=== PATIENT | male | born 1990 | race African-American/Black ===

== ENCOUNTER 2018-08-17 08:53 | Emergency (ER) | payer MEDICAID ==
[~2018-08-17] VITALS: Ht 180.3 cm; Wt 5.0 kg
[2018-08-17 09:02] VITALS: BP 130/76
== END 2018-08-17 10:50 | disposition home or self-care (01) ==
LOC: ER 08:53
DX: N48.1 Balanitis (principal); J06.9 Acute upper respiratory infection, unspecified; F12.10 Cannabis abuse, uncomplicated
CPT/HCPCS: 99283

== ENCOUNTER 2018-10-19 05:30 | Emergency (ER) | payer MEDICAID ==
[~2018-10-19] VITALS: Ht 180.3 cm; Wt 84.0 kg
[2018-10-19 05:46] VITALS: BP 125/63
[2018-10-19] MEDS ORDERED: CEFTRIAXONE SODIUM 250 MG/VIAL IM ONE (06:15)
[2018-10-19] MEDS ORDERED: AZITHROMYCIN 500 MG TABLET PO ONE (06:15)
[2018-10-19] MEDS ORDERED: IBUPROFEN 800MG TABLET PO ONE (07:00)
[2018-10-19 08:28] LABS: *AMPHETAMINES SCREEN URINE NEGATIVE (NEGATIVE); *BARBITURATES SCREEN URINE NEGATIVE (NEGATIVE)
[2018-10-19 08:29] LABS: *BENZODIAZEPINES SCREEN URINE NEGATIVE (NEGATIVE); *COCAINE SCREEN URINE PRESUMTIVE POSITIVE (NEGATIVE); CANNABINOID URINE SCREEN PRESUMTIVE POSITIVE (NEGATIVE); METHADONE URINE SCREEN NEGATIVE (NEGATIVE); OPIATES URINE SCREEN NEGATIVE (NEGATIVE); PHENCYCLIDINE URINE SCREEN NEGATIVE (NEGATIVE)
== END 2018-10-19 08:27 | disposition home or self-care (01) ==
LOC: ER 05:30
DX: M54.12 Radiculopathy, cervical region (principal); A64 Unspecified sexually transmitted disease; N34.2 Other urethritis; F17.210 Nicotine dependence, cigarettes, uncomplicated; F12.10 Cannabis abuse, uncomplicated
CPT/HCPCS: 72125; 80305; 96372; 99284; 99406; J0696

== ENCOUNTER 2021-04-14 11:52 | Emergency (ER) | payer MEDICAID ==
[~2021-04-14] VITALS: Ht 180.3 cm; Wt 76.7 kg
[2021-04-14] MEDS ORDERED: KETOROLAC 60MG/2ML VIAL IM ONE (12:30)
[2021-04-14] MEDS ORDERED: CYCLOBENZAPRINE 10MG TABLET PO ONE (12:30)
[2021-04-14] MEDS ORDERED: IBUP-2030 MT (13:34)
[2021-04-14] MEDS ORDERED: CYCL10TA7 MT (13:34)
[2021-04-14 13:40] VITALS: BP 118/70
== END 2021-04-14 13:50 | disposition home or self-care (01) ==
LOC: ER 11:52
DX: S16.1XXA Strain of muscle, fascia and tendon at neck level, initial encounter (principal); X58.XXXA Exposure to other specified factors, initial encounter; Y93.89 Activity, other specified; Y92.89 Other specified places as the place of occurrence of the external cause; Y99.8 Other external cause status; F12.10 Cannabis abuse, uncomplicated
CPT/HCPCS: 96372; 99283; J1885

== ENCOUNTER 2021-09-24 11:27 | Emergency (ER) | payer MEDICAID ==
[~2021-09-24] VITALS: Ht 172.7 cm; Wt 70.0 kg
[~2021-09-24 11:27] MED LIST: CYCL10TA21 MT; IBUP-2030 MT
[2021-09-24] MEDS ORDERED: ACETAMINOPHEN 325MG TABLET PO ONE (11:45)
[2021-09-24] MEDS ORDERED: SODIUM CHLORIDE 0.9% 1,000 ML IV ONE (11:45)
[2021-09-24 12:16] LABS: BASOPHILS % 0.5 % (0.0-2.0); EOSINOPHILS % 0.1 % (0.0-5.0); HEMATOCRIT. 41.1 % (42.0-52.0); HEMOGLOBIN. 14.3 g/dL (14.0-18.0); LYMPHOCYTES % 14.6 % (20.0-50.0); MEAN CORPUSCULAR HEMOGLOBIN 30.8 pg (28.0-32.0); MEAN CORPUSCULAR VOLUME 88.5 fL (80.0-94.0); MEAN PLATELET VOLUME 9.3 fl (7.4-10.4); MONOCYTES % 7.3 % (2.0-8.0); NEUTROPHILS % 77.5 % (40.0-76.0); PLATELET 96 x1000/uL (130-400); RED BLOOD CELL COUNT 4.64 mill/uL (4.7-6.1); RED CELL DISTRIBUTION WIDTH 12.9 % (11.6-14.6)
[2021-09-24 12:27] LABS: CHLORIDE 97 mEq/L (98-107)
[2021-09-24 14:54] VITALS: BP 126/86
[2021-09-24] MEDS ORDERED: ONDA4TAB5 MT (15:15)
[2021-09-24] MEDS ORDERED: IBUP-2028 MT (15:15)
== END 2021-09-24 15:53 | disposition home or self-care (01) ==
LOC: ER 11:27
DX: B34.9 Viral infection, unspecified (principal); F12.10 Cannabis abuse, uncomplicated; Z20.822 Contact with and (suspected) exposure to COVID-19
CPT/HCPCS: 36415; 71045; 80053; 83605; 83690; 85025; 87426; 87804; 99284; C9803; J7030

== ENCOUNTER 2024-06-03 06:19 | Emergency (ER) | payer MEDICAID ==
[~2024-06-03] VITALS: Ht 182.9 cm; Wt 73.0 kg
[~2024-06-03 06:19] MED LIST changes: +IBUP-2028 MT; +ONDA4TAB5 MT
[2024-06-03 06:22] VITALS: BP 158/83; PULSE 90; RESP 16; TEMP 36.7; O2SAT 99
[2024-06-03] MEDS ORDERED: KETOROLAC 30MG/ML VIAL IM STA (09:17)
[2024-06-03] MEDS ORDERED: CEFTRIAXONE SODIUM 500MG VIAL IM ONE (09:30)
[2024-06-03] MEDS ORDERED: AZITHROMYCIN 500 MG TABLET PO ONE (09:30)
[2024-06-03 10:08] LABS: BASOPHILS % 0.2 % (0.0-2.0); EOSINOPHILS % 0.6 % (0.0-5.0); HEMATOCRIT. 39.9 % (42.0-52.0); HEMOGLOBIN. 13.4 g/dL (14.0-18.0); LYMPHOCYTES % 9.3 % (20.0-50.0); MEAN CORPUSCULAR HEMOGLOBIN 30.3 pg (28.0-32.0); MEAN CORPUSCULAR HGB CONC 33.6 g/dL (31.0-37.0); MEAN CORPUSCULAR VOLUME 90.3 fL (80.0-94.0); MEAN PLATELET VOLUME 9.5 fl (7.4-10.4); MONOCYTES % 10.7 % (2.0-8.0); NEUTROPHILS % 79.2 % (40.0-76.0); PLATELET 132 x1000/uL (130-400); RED BLOOD CELL COUNT 4.43 mill/uL (4.7-6.1); RED CELL DISTRIBUTION WIDTH 13.7 % (11.6-14.6); WHITE BLOOD COUNT 6.3 x1000/uL (4.5-11.0)
[2024-06-03 10:13] LABS: CHLORIDE 99 mEq/L (98-107); POTASSIUM 3.6 mEq/L (3.5-5.1); SODIUM 132 mEq/L (136-145)
[2024-06-03 10:17] LABS: CALCIUM 9.2 mg/dL (8.7-10.4); CARBON DIOXIDE 29 mEq/L (21-32)
[2024-06-03 10:22] LABS: CREATININE 0.9 mg/dL (0.6-1.3); GLUCOSE 83 mg/dL (70-105)
[2024-06-03 10:23] LABS: ALANINE AMINOTRANSFERASE 13 IU/L (10-49); ASPARTATE AMINOTRANSFERASE 18 IU/L (<34); UREA NITROGEN BLOOD 14 mg/dL (9-23)
[2024-06-03 10:24] LABS: ALBUMIN 3.9 g/dL (3.2-4.8)
[2024-06-03 10:25] LABS: BILIRUBIN DIRECT 0.1 mg/dL (<=3.0); BILIRUBIN TOTAL 0.4 mg/dL (0.1-1.0); PROTEIN TOTAL 7.8 g/dL (6.0-8.3)
== END 2024-06-03 10:18 | disposition left against medical advice (07) ==
LOC: ER 06:19
DX: K40.90 Unilateral inguinal hernia, without obstruction or gangrene, not specified as recurrent (principal); Z53.21 Procedure and treatment not carried out due to patient leaving prior to being seen by health care provider; Z79.899 Other long term (current) drug therapy
CPT/HCPCS: 36415; 80048; 80076; 85025; 99283